=== PATIENT | female | born 2000 | race Caucasian/White ===

== ENCOUNTER 2021-02-04 14:27 | Emergency (ER) | payer BC, OTHER ==
[~2021-02-04] VITALS: Ht 157.5 cm; Wt 57.2 kg
--- NOTE | 2021-02-04 15:38 | NUR ---
ASSUMED CARE OF PATIENT. PATIENT REPORTS SHE HAS NOT BEEN ABLE TO HAVE A BOWEL MOVEMENT IN 1 WEEK. PT C/O CENTER ABD PAIN. VS STABLE. NO ACUTE DISTRESS NOTED. WILL CONTINUE TO MONITOR.
[2021-02-04 15:39] LABS: BASOPHILS % (AUTO) 1 % (0-1); EOSINOPHILS % (AUTO) 2 % (1-7); LYMPHOCYTES % (AUTO) 51 % (22-44); MEAN CORPUSCULAR HEMOGLOBIN 29.7 pg (27.0-34.8); MEAN CORPUSCULAR HGB CONC 33.5 g/dL (32.4-35.8); MONOCYTES % (AUTO) 8 % (2-9); NEUTROPHILS % (AUTO) 38 % (42-75); PLATELET COUNT 175 x10^3/uL (130-400); RED BLOOD COUNT 4.35 x10^6/uL (3.82-5.3); RED CELL DISTRIBUTION WIDTH 12.8 % (9.6-15.2)
[2021-02-04 15:49] LABS: ALANINE AMINOTRANSFERASE 26 U/L (12-78); ALBUMIN 3.6 g/dL (3.4-5.0); ANION GAP 6 mmol/L (5-15); CALCIUM 8.6 mg/dL (8.5-10.1); CHLORIDE 109 mmol/L (98-107); CREATININE 0.66 mg/dL (0.55-1.02)
[2021-02-04 15:53] LABS: ALKALINE PHOSPHATASE 69 U/L (45-117); BILIRUBIN,TOTAL 0.4 mg/dL (0.2-1.0); TOTAL PROTEIN 7.1 g/dL (6.4-8.2)
[2021-02-04 16:02] LABS: MD SCAN
--- NOTE | 2021-02-04 16:20 | NUR ---
PT HAD A LARGE BOWEL MOVEMENT. VS STABLE. NO ACUTE DISTRESS NOTED. WILL CONTINUE TO MONITOR.
[2021-02-04 16:39] VITALS: BP 111/75
--- NOTE | 2021-02-04 17:18 | NUR ---
DR JENKINS HAS UPDATED PATIENT
== END 2021-02-04 17:43 | disposition home or self-care (01) ==
LOC: ED 16:57
DX: R10.32 Left lower quadrant pain (principal); K59.00 Constipation, unspecified
CPT/HCPCS: 36415; 80053; 84703; 85025; 99284